=== PATIENT | male | born 1945 | race Caucasian/White ===

== ENCOUNTER 2019-11-11 21:46 | Observation (INO) ==
[2019-11-11 22:46] LABS: Basophils % 0.4 %; Eosinophils # 0.4 K/mcL (0.0-0.6); Eosinophils % 4.6 %; Hematocrit 39.1 % (37.5-50.1); Hemoglobin 12.3 g/dL (12.9-16.9); Immature Granulocytes % 0.4 % (0-4); Lymphocytes # 2.3 K/mcL (0.6-4.6); Lymphocytes % 29.3 %; Mean Corpuscular HGB Conc 31.5 g/dL (31.6-35.5); Mean Corpuscular Hemoglobin 28.3 pg (28.0-33.3); Mean Corpuscular Volume 90.1 fL (83.0-100.0); Mean Platelet Volume 10.4 fL (9.4-12.4); Monocytes # 0.9 K/mcL (0.0-1.3); Monocytes % 11.7 %; Neutrophils # 4.3 K/mcL (1.6-8.9); Platelet Count 233 K/mcL (140-400); Red Blood Count 4.34 M/mcL (4.19-5.50); Red Cell Distribution Width 13.6 % (11.5-14.5); Segmented Neutrophils % 53.6 %
[2019-11-11 23:04] LABS: Activated Partial Thrombo Time 44.2 Seconds (26.0-36.0)
[2019-11-11 23:07] LABS: Alanine Aminotransferase 9 Units/L (7-52); Albumin 3.4 g/dL (3.5-5.7); Albumin/Globulin Ratio 1.3 (1.1-2.2); Alkaline Phosphatase 46 Units/L (34-104); Aspartate Amino Transferase 14 Units/L (13-39); BUN/Creatinine Ratio 11 (6-26); Bilirubin,Total 0.3 mg/dL (0.3-1.0); Blood Urea Nitrogen 17 mg/dL (8-23); Calcium 9.5 mg/dL (8.6-10.3); Carbon Dioxide 27 mEq/L (23-29); Chloride 107 mEq/L (98-107); Globulin 2.7 g/dL (2.4-3.5); Glucose 105 mg/dL (70-105); Osmolality,Calculated 288 (280-300); Potassium 4.4 mEq/L (3.5-5.1); Sodium 138 mEq/L (136-145); Total Protein 6.1 g/dL (6.4-8.9); Troponin I < 0.03 ng/mL (< 0.04); eGFR For African Americans 52 (> 60); eGFR For Non-African Americans 43 (> 60)
[2019-11-11 23:37] LABS: INR 1.5; Prothrombin Time 16.6 Seconds (9.4-12.1)
[2019-11-11] MEDS ORDERED: Aspirin 81 MG TAB.CHEW PO ONE (23:49)
[2019-11-12] MEDS ORDERED: Naloxone 0.4 MG/ML INJ IVP PRN (03:56)
[2019-11-12 04:31] LABS: Hemoglobin 12.5 g/dL (12.9-16.9); Mean Corpuscular HGB Conc 32.1 g/dL (31.6-35.5); Mean Corpuscular Hemoglobin 28.9 pg (28.0-33.3); Mean Corpuscular Volume 90.3 fL (83.0-100.0); Mean Platelet Volume 10.4 fL (9.4-12.4); Platelet Count 230 K/mcL (140-400); Red Blood Count 4.32 M/mcL (4.19-5.50); Red Cell Distribution Width 13.7 % (11.5-14.5); White Blood Count 7.8 K/mcL (4.3-11.1)
[2019-11-12 04:53] LABS: BUN/Creatinine Ratio 11 (6-26); Blood Urea Nitrogen 17 mg/dL (8-23); Calcium 9.6 mg/dL (8.6-10.3); Carbon Dioxide 29 mEq/L (23-29); Chloride 106 mEq/L (98-107); Glucose 100 mg/dL (70-105); Osmolality,Calculated 294 (280-300); Potassium 4.7 mEq/L (3.5-5.1); Sodium 141 mEq/L (136-145); eGFR For African Americans 55 (> 60); eGFR For Non-African Americans 45 (> 60)
[2019-11-12 04:54] LABS: Troponin I < 0.03 ng/mL (< 0.04)
[2019-11-12] MEDS ORDERED: *HR* OxyCODONE/APAP 5/325 TABLET PO PRN (10:54)
[2019-11-12] MEDS: Ondansetron 4 MG/2 ML VIAL IVP PRN (12:29)
[2019-11-12] MEDS: *HR* Rivaroxaban 10 MG TABLET PO SCH (17:15)
[2019-11-12] MEDS ORDERED: *HR* OxyCODONE/APAP 10/325 TABLET PO PRN (20:39)
[2019-11-12] MEDS: Gabapentin 100 MG CAPSULE PO SCH (20:54)
[2019-11-13] MEDS: Fluticasone Propionate Nasal 50 MCG/SPRAY BOTTLE NS SCH (09:37)
[2019-11-13] MEDS: atenoloL 25 MG TABLET PO SCH (09:38)
[2019-11-13] MEDS: Multivit/Ca/Min/Fe/FA 1 TAB TABLET PO SCH (09:38)
[2019-11-13] MEDS: calcitrioL 0.25 MCG CAPSULE PO SCH (09:38)
[2019-11-13] MEDS: Loratadine 10 MG TABLET PO SCH (09:38)
[2019-11-13] MEDS: Gabapentin 100 MG CAPSULE PO SCH ×3 (09:38→22:23)
[2019-11-13] MEDS: *HR* HYDROcodone/Acet 5/325 mg TABLET PO PRN (13:05)
[2019-11-13] MEDS: Ondansetron 4 MG/2 ML VIAL IVP PRN (13:06)
[2019-11-13] MEDS ORDERED: Sennosides/Docusate Sodium TABLET PO PRN (13:31)
[2019-11-13] MEDS: *HR* Rivaroxaban 10 MG TABLET PO SCH (17:57)
[2019-11-14 07:17] VITALS: BP 116/51
[2019-11-14] MEDS: Loratadine 10 MG TABLET PO SCH (07:50)
[2019-11-14] MEDS: Multivit/Ca/Min/Fe/FA 1 TAB TABLET PO SCH (07:50)
[2019-11-14] MEDS: Gabapentin 100 MG CAPSULE PO SCH (07:50)
[2019-11-14] MEDS: Fluticasone Propionate Nasal 50 MCG/SPRAY BOTTLE NS SCH (07:50)
[2019-11-14] MEDS ORDERED: Regadenoson 0.4 MG/5 ML SYRINGE IVP ONE (08:41)
[2019-11-14] MEDS: calcitrioL 0.25 MCG CAPSULE PO SCH (11:50)
[2019-11-14] MEDS: *HR* HYDROcodone/Acet 5/325 mg TABLET PO PRN (13:23)
[2019-11-14] MEDS: atenoloL 25 MG TABLET PO SCH (13:23)
== END 2019-11-14 15:29 | disposition home or self-care (01) ==
LOC: EMEROOARM 21:46 → 2NENU 21:46 → SUATTDRO 11-12 00:40 → 2NENU 11-12 01:10 → 3BNU 11-13 23:19
PROVIDERS: ADMIT Internal Medicine; ATTEND Internal Medicine